=== PATIENT | female | born 1940 | race Caucasian/White ===

== ENCOUNTER 2016-10-02 17:30 | Inpatient (IN) ==
[2016-10-02] MEDS ORDERED: Melatonin 3 MG TABLET PO PRN (18:15)
--- NOTE | 2016-10-02 20:00 | Internal Med History&Physical ---
Date of Encounter: 10/03/16 Time of Encounter: 19:59 Assessment and Plan (1) Transient neurological symptoms Current visit: Yes Status: Acute Patient was transferred to our facility from [facility] with what sounds like a TIA or transient neurological change with symptoms of expressive aphasia and confusion , inability to write with her hand, and exacerbated weakness in lower extremities. Her aphasia has cleared, her handwriting problems have resolved, she is very minimal stuttering. Her basic complaint is lower extremity weakness which she states is chronic but exacerbated with this neurological episode to the point where she cannot stand or even make safe transfers. She has had a negative workup in the past. She was told by [facility] that she has not had a stroke. Her workup including carotid Dopplers, CT scan, echocardiogram are nonfocal. She states these are very characteristic regarding a aphasia, inability to write and increased weakness in lower extremities. Then it totally resolves back to baseline. Chronically she cannot walk well and is basically wheelchair bound. Not sure if this is from spinal stenosis or from statin-induced myopathy, or combination of the two. In either case she avoid statins. She will have PT, OT, recreational therapy evaluations as well as evaluation by Dr. Page and Dr. Rodrigues. Currently she appears be medically stable. She has been changed from aspirin to Plavix at [facility] I think this is a good idea and will follow. The goal is for her to return back to her home, there is a ramp and she lives on the first floor. 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 (2) History of aphasia Current visit: Yes Status: Acute Her aphasia has now clinically cleared. Please see the above note. (3) Spinal stenosis Current visit: Yes Status: Acute Chronic spinal stenosis. She has failed injections in the past. She has a nerve stimulator. She states her baseline is that she has weakness and spends most of her time in the wheelchair. After neurological event related to the aphasia the weakness is usually worse for a while until she gets therapy. The goal is for her to return back to her home which has a ramp in 1 floor usage. Qualifiers: Spinal region: lumbar Qualified Code(s): M48.06 - Spinal stenosis, lumbar region (4) Weakness of both lower extremities Current visit: Yes Status: Acute As discussed above. (5) Statin myopathy Current visit: Yes Status: Acute The weakness from spinal stenosis occurred first. Not sure if the statin exacerbated the problem or not. She no longer uses a statin. (6) Osteoarthritis Current visit: Yes Status: Acute Chronic osteoarthritis of numerous joints.. Uses Tylenol when necessary. No acute flareup. Qualifiers: Osteoarthritis location: unspecified site Qualified Code(s): M19.90 - Unspecified osteoarthritis, unspecified site (7) Hypertension Current visit: Yes Status: Acute Blood pressure is under good control. We will continue to monitor. Qualifiers: Hypertension type: essential hypertension Qualified Code(s): I10 - Essential (primary) hypertension Internal Medicine - H&P: HPI Chief complaint: I had another episode and am not able to walk Admitted From: Hospital to Hospital Transfer Plans for Post Hospital Care: Home History of present illness: Ms. Chacon is a 76 year old female who has history of chronic spinal stenosis and has had 6 episodes of expressive aphasia since 2012. She is transferred from [facility] to our facility to a swing bed for PT and OT. Her episodes started in 2012. She has one just about every year. Last was January 2015. Typically she will have expressive aphasia and confusion and inability to write and this lasts for 24-32 hours. This last time it lasted 3 days. Currently the only residual trouble with speech is occasional stuttering. Occasionally she will drool as well. After an episode she has difficulties with ambulation and typically has to go to a long term or rehabilitation facility until her strength comes back until she becomes more independent. She had a workup at [facility] including carotid dopplers/only mild stenosis, echocardiogram did not show signs of risk for embolization, CT scan showed only small vessel disease. Labs were nonfocal. She does have a history of chronic spinal stenosis for many years, failed injections and has a nerve stimulator. Typically she is in a wheelchair, she can walk a few steps using a walker. She states she is able to transfer into a car and drive. She states the weakness in the lower extremities worsened when using a statin a few years ago. She had "complete numbness" and just worsening lower extremity strength since that time. She stopped taking statins at that time. She lives in a log cabin home and has a ramp to get into the home and stays on the first floor. She is able to drive short distances. 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 A lot of the history was obtained from the granddaughter is very close to this patient and confirmed her history. Past Med Surg Social Fam HX - Past Medical History Medical history: arthritis, TIA (Transient aphasia and lower extremity weakness) , other (Spinal stenosis, failed injections, has a nerve stimulator.) - Past Surgical History Surgical History: appendectomy, hysterectomy, knee replacement - Social History Smoking Status: Never smoker Smokeless Tobacco Status: No Alcohol use: none Drug use: none - Additional Family History Additional family history: Noncontributory. No history of neuromuscular problems in the family Internal Medicine - H&P: Meds Acetaminophen [Non-Aspirin] 650 mg PO Q6HR PRN 10/02/16 [History] Clopidogrel [Plavix] 75 mg PO DAILY 10/02/16 [History] Cyanocobalamin (Vitamin B-12) [Vitamin B12] 1,000 mcg PO DAILY 10/02/16 [History ] Ergocalciferol (VITAMIN D2) [Vitamin D2] 50,000 unit PO S[place] 10/02/16 [History] Folic Acid 1 mg PO DAILY 10/02/16 [History] Levothyroxine [Synthroid] 50 mcg PO DAILY 10/02/16 [History] Melatonin 3 mg PO PRN PRN 10/02/16 [History] Thiamine (B-1) [Vitamin B-1] 200 mg PO DAILY 10/02/16 [History] amLODIPine [Norvasc] 5 mg PO DAILY 10/02/16 [History] Allergies Penicillins Allergy (Verified 10/02/16 17:59) Rash Pveefgj-Mgz-Xym Reductase Inhibitor [Statins] Allergy (Verified 10/02/16 17:59) Numbness - Constitutional Constitutional: weakness (As in history of present illness), no fever(s), no night sweats - EENT Eyes: no blurry vision, no change in vision, no diplopia, no loss of vision, no tunnel vision Ears: no decreased hearing, no ear discharge, no ear pain Nose, mouth and throat: no dry mouth, no neck mass, no neck pain, no sinus pain , no sore throat - Breasts Breasts: no mass, no pain, no nipple discharge - Cardiovascular Cardiovascular ROS IM: no chest pain, no claudication, no dyspnea, no dyspnea on exertion, no irregular heart rhythm, no lightheadedness, no orthopnea, no palpitations - Respiratory Respiratory: no cough, no dyspnea, no dyspnea on exertion, no wheezing, no stridor - Gastrointestinal Gastrointestinal: no abdominal pain, no constipation, no diarrhea, no heartburn , no nausea - Genitourinary Genitourinary: no change in urinary stream, no difficulty urinating, no urinary urgency, no vaginal discharge Menstruation: post menopausal - Musculoskeletal Musculoskeletal ROS IM: as per HPI, back pain (Has spinal stenosis and has a nerve stimulator. No exacerbation recently.), muscle weakness (As in history of present illness), no joint swelling, no myalgias, no numbness, no tingling - Integumentary Integumentary IM: no new lesions, no rash - Neurological Neurological ROS: behavioral changes (When she has her aphasia "she is out of that and confused"), focal weakness (Lower extremities as in history of present illness), no confusion, no convulsions, no loss of vision, no tremor(s), no vertigo - Psychiatric Psychiatric: no anxiety, no confusion, no depression, no mood swings, no panic attacks - Constitutional Vitals: Temp Pulse Resp BP Pulse Ox 98.1 F 87 16 148/81 97 10/02/16 17:49 10/02/16 17:49 10/02/16 17:49 10/02/16 17:49 10/02/16 17:49 General appearance: Present: A&O X 3, pleasant, no acute distress, obese, answers questions appropriately - Head Head exam: Present: atraumatic - Eye Eye exam: Present: EOMI, normal appearance, PERRL. Absent: nystagmus, scleral icterus Pupils: Present: PERRL - ENT ENT exam: Present: normal oropharynx (Upper set of dentures), TM's normal bilaterally - Neck Neck exam general surgery: Absent: lymphadenopathy, tenderness, nuchal rigidity , thyromegaly Additional comments: No JVD. No carotid bruits - Respiratory Respiratory exam: Present: decreased breath sounds, CTAB. Absent: respiratory distress - Cardiovascular Cardiovascular exam: Present: distant heart sounds, RRR, +S1, +S2. Absent: systolic murmur - GI/Abdominal GI/Abdominal exam: Present: soft, no peritoneal signs. Absent: hepatomegaly, mass, tenderness - Extremities Exam Extremities exam: Absent: calf tenderness, pedal edema, tenderness Additional comments: Good posterior tibial pulses - Neurological Exam Neurological exam: Present: CN II-XII intact, oriented X3, speech deficit ( Occasional subtle stutter). Absent: facial droop Additional comments: Lower extremity weakness and quads and hamstrings. Decreased plantar and dorsiflexion strength against resistance. I was barely able get her seated at the edge of the bed for fear she was going to slide off. She could not extend at the thighs or lower extremities against gravity. I had to lift her legs and swelling then backed into bed. Upper extremities show equal strength bilaterally and normal. No tremor. No fasciculations. - Psychiatric Psychiatric exam: Present: normal affect, normal mood - Skin Additional comments: Well-healed transverse scar in the left lower flank area from her nerve stimulator Internal Med - H&P Results - Labs CBC & Chem 7: 10/03/16 05:00 10/03/16 05:00
[2016-10-03 05:34] LABS: Basophils % 0.5 %; Eosinophils # 0.1 K/mcL (0.0-0.6); Eosinophils % 2.3 %; Hemoglobin 11.4 g/dL (11.5-15.4); Immature Granulocytes % 0.3 % (0-4); Lymphocytes # 1.3 K/mcL (0.6-4.6); Mean Corpuscular HGB Conc 32.6 g/dL (31.6-35.5); Mean Corpuscular Hemoglobin 28.4 pg (28.0-33.3); Mean Corpuscular Volume 87.3 fL (83.0-100.0); Mean Platelet Volume 10.8 fL (9.4-12.4); Monocytes # 0.6 K/mcL (0.0-1.3); Platelet Count 196 K/mcL (140-400); Red Blood Count 4.01 M/mcL (3.82-4.97); Red Cell Distribution Width 14.5 % (11.5-14.5); Segmented Neutrophils % 65.9 %
[2016-10-03 05:44] LABS: BUN/Creatinine Ratio 22 (6-26); Blood Urea Nitrogen 19 mg/dL (7-20); Calcium 9.1 mg/dL (8.6-10.8); Carbon Dioxide 24 mEq/L (19-29); Chloride 108 mEq/L (98-109); Glucose 102 mg/dL (70-99); Osmolality,Calculated 294 (280-300); Potassium 4.3 mEq/L (3.5-4.5); Sodium 141 mEq/L (136-145); eGFR For African Americans > 60 (> 60); eGFR For Non-African Americans > 60 (> 60)
[2016-10-03] MEDS: Folic Acid 1 MG TABLET PO SCH (09:01)
[2016-10-03] MEDS: amLODIPine 5 MG TABLET PO SCH (09:02)
[2016-10-03] MEDS: Cyanocobalamin (B-12) 1,000 MCG TABLET PO SCH (09:02)
[2016-10-03] MEDS: Thiamine (B-1) 100 MG TABLET PO SCH (09:02)
[2016-10-03] MEDS: Acetaminophen 325 MG TABLET PO PRN (09:08)
--- NOTE | 2016-10-03 15:24 | Internal Med Progress Note ---
Date of Encounter: 10/03/16 Time of Encounter: 15:19 - Assessment and plan (1) Transient neurological symptoms Current Visit: Yes Status: Acute Assessment and plan: The aphasia and handwriting issues have cleared. Her lower show any weakness is improving. Please the PT and OT notes. See the examination above. Vast improvement today. (2) History of aphasia Current Visit: Yes Status: Resolved Assessment and plan: The aphasia is now cleared. (3) Spinal stenosis Current Visit: Yes Status: Chronic Assessment and plan: She thinks her spinal stenosis nerve stimulator is working fine. Used Tylenol for pain today. Qualifiers: Spinal region: lumbar Qualified Code(s): M48.06 - Spinal stenosis, lumbar region (4) Weakness of both lower extremities Current Visit: Yes Status: Acute Assessment and plan: Improvement in lower extremity weakness. She is able to walk to the nurses station with walker today. Improved examination as above. Continue PT and OT. (5) Statin myopathy Current Visit: Yes Status: Chronic (6) Osteoarthritis Current Visit: Yes Status: Chronic Qualifiers: Osteoarthritis location: unspecified site Qualified Code(s): M19.90 - Unspecified osteoarthritis, unspecified site (7) Hypertension Current Visit: Yes Status: Chronic Assessment and plan: Blood pressure is controlled. Qualifiers: Hypertension type: essential hypertension Qualified Code(s): I10 - Essential (primary) hypertension - Subjective Interval history: Patient states that she is getting better. No aphasic or handwriting issues now. She was able to walk with physical therapy to the nurses station from room 114. She denies any chest pain, palpitation, irregular heartbeat, GI or symptoms. Her pain is under adequate control. She did take 2 Tylenol today. Her nerve stimulator she feels is working adequately. - Constitutional Vitals: Temp Pulse Resp BP Pulse Ox 98 F 65 16 131/82 95 10/03/16 12:00 10/03/16 12:00 10/03/16 12:00 10/03/16 12:00 10/03/16 12:00 General appearance: Present: A&O X 3, pleasant, obese, answers questions appropriately - Respiratory Respiratory exam: Present: CTAB - Cardiovascular Cardiovascular exam: Present: RRR, +S1, +S2 - Extremities Exam Extremities exam: Absent: calf tenderness, pedal edema, tenderness Additional comments: In seated position in the wheelchair she cannot raise her thighs against my hand. Against gravity she can extend at the knees approximately 45 degrees on either side. About 4 out of 5 in strength in her hamstrings and dorsi and plantar flexion of the feet - Neurological Exam Neurological exam: Present: alert, altered, CN II-XII intact, oriented X3. Absent: facial droop, speech deficit Internal Medicine: Result - Labs CBC & Chem 7: 10/03/16 05:00 10/03/16 05:00 Labs: Short CBC 10/03/16 Range/Units 05:00 WBC 6.1 (4.3-11.1) K/mcL Hgb 11.4 L (11.5-15.4) g/dL Hct 35.0 L (35.3-44.9) % Plt Count 196 (140-400) K/mcL Neutrophils # 4.0 (1.6-8.9) K/mcL BMP 10/03/16 05:00 Sodium 141 Potassium 4.3 Chloride 108 Carbon Dioxide 24 BUN 19 Creatinine 0.86 Glucose 102 H Calcium 9.1 Labs are reviewed. Unremarkable for this patient. - VTE Documentation of Mechanical Device: Graduated compression elastic hosiery Consult Discharge Plan - Plan Referrals: Bal Branch MD [Primary Care Provider] -
[2016-10-04] MEDS: Acetaminophen 325 MG TABLET PO PRN (02:48)
[2016-10-04] MEDS: Folic Acid 1 MG TABLET PO SCH (08:35)
[2016-10-04] MEDS: Thiamine (B-1) 100 MG TABLET PO SCH (08:35)
[2016-10-04] MEDS: amLODIPine 5 MG TABLET PO SCH (08:35)
[2016-10-04] MEDS: Cyanocobalamin (B-12) 1,000 MCG TABLET PO SCH (08:35)
--- NOTE | 2016-10-04 12:40 | Internal Med Progress Note ---
Date of Encounter: 10/04/16 Time of Encounter: 12:36 - Assessment and plan (1) Transient neurological symptoms Current Visit: Yes Status: Acute Assessment and plan: No recurrence of aphasia. Strength improving his lower extremities. Continue with PT, OT, RT (2) History of aphasia Current Visit: Yes Status: Resolved Assessment and plan: No recurrence of aphasia (3) Spinal stenosis Current Visit: Yes Status: Chronic Qualifiers: Spinal region: lumbar Qualified Code(s): M48.06 - Spinal stenosis, lumbar region (4) Weakness of both lower extremities Current Visit: Yes Status: Acute Assessment and plan: Improvement in lower extremity weakness. (5) Statin myopathy Current Visit: Yes Status: Chronic (6) Osteoarthritis Current Visit: Yes Status: Chronic Assessment and plan: Requested to Tylenol in the middle of the night for pain, improved Qualifiers: Osteoarthritis location: unspecified site Qualified Code(s): M19.90 - Unspecified osteoarthritis, unspecified site (7) Hypertension Current Visit: Yes Status: Chronic Assessment and plan: Adequately controlled Qualifiers: Hypertension type: essential hypertension Qualified Code(s): I10 - Essential (primary) hypertension - Subjective Interval history: She thinks she continues to improve. Denies any cardiac or respiratory symptoms. No recurrence of her aphasia. Lower extremities are getting stronger. She is sitting up waiting to get a shower this morning. - Constitutional Vitals: Temp Pulse Resp BP Pulse Ox 98.0 F 77 18 139/68 95 10/04/16 07:13 10/04/16 07:13 10/04/16 07:13 10/04/16 07:13 10/04/16 07:13 General appearance: Present: A&O X 3, pleasant, obese, answers questions appropriately - Respiratory Respiratory exam: Present: CTAB - Cardiovascular Cardiovascular exam: Present: RRR, +S1, +S2, systolic murmur (1 to 2/6 systolic murmur) - GI/Abdominal GI/Abdominal exam: Present: soft. Absent: tenderness - Extremities Exam Extremities exam: Absent: calf tenderness, pedal edema, tenderness Additional comments: She is seated in a wheelchair. She can raise her thighs off the chair, 3-4 out of 5 against resistance. She fully extend against gravity at the knees. Raising toes. Internal Medicine: Result - Labs CBC & Chem 7: 10/03/16 05:00 10/03/16 05:00 - VTE Documentation of Mechanical Device: Graduated compression elastic hosiery Consult Discharge Plan - Plan Referrals: Bal Branch MD [Primary Care Provider] -
[2016-10-05] MEDS: Acetaminophen 325 MG TABLET PO PRN ×3 (01:40→17:44)
[2016-10-05 05:32] LABS: Basophils % 0.7 %; Eosinophils # 0.1 K/mcL (0.0-0.6); Eosinophils % 2.3 %; Hematocrit 35.1 % (35.3-44.9); Hemoglobin 11.5 g/dL (11.5-15.4); Immature Granulocytes % 0.2 % (0-4); Lymphocytes # 1.5 K/mcL (0.6-4.6); Lymphocytes % 26.3 %; Mean Corpuscular HGB Conc 32.8 g/dL (31.6-35.5); Mean Corpuscular Hemoglobin 28.4 pg (28.0-33.3); Mean Corpuscular Volume 86.7 fL (83.0-100.0); Mean Platelet Volume 10.5 fL (9.4-12.4); Monocytes # 0.5 K/mcL (0.0-1.3); Monocytes % 8.5 %; Neutrophils # 3.5 K/mcL (1.6-8.9); Platelet Count 196 K/mcL (140-400); Red Blood Count 4.05 M/mcL (3.82-4.97); Red Cell Distribution Width 14.5 % (11.5-14.5)
[2016-10-05 05:43] LABS: BUN/Creatinine Ratio 20 (6-26); Blood Urea Nitrogen 16 mg/dL (7-20); Calcium 8.9 mg/dL (8.6-10.8); Carbon Dioxide 23 mEq/L (19-29); Chloride 107 mEq/L (98-109); Glucose 97 mg/dL (70-99); Osmolality,Calculated 289 (280-300); Potassium 4.4 mEq/L (3.5-4.5); Sodium 139 mEq/L (136-145); eGFR For African Americans > 60 (> 60); eGFR For Non-African Americans > 60 (> 60)
[2016-10-05] MEDS: Cyanocobalamin (B-12) 1,000 MCG TABLET PO SCH (08:26)
[2016-10-05] MEDS: Thiamine (B-1) 100 MG TABLET PO SCH (08:26)
[2016-10-05] MEDS: amLODIPine 5 MG TABLET PO SCH (08:27)
[2016-10-05] MEDS: Folic Acid 1 MG TABLET PO SCH (08:27)
--- NOTE | 2016-10-05 09:22 | Internal Med Progress Note ---
Date of Encounter: 10/05/16 Time of Encounter: 09:15 - Assessment and plan (1) Transient neurological symptoms Current Visit: Yes Status: Acute Assessment and plan: Appears to have near total resolution of her symptoms. We will see how she does with OT and PT today. Discharge planning will be done. She would like to have replacement wheelchair at home as hers is "50 years old ". (2) History of aphasia Current Visit: Yes Status: Resolved Assessment and plan: No signs of recurrence (3) Spinal stenosis Current Visit: Yes Status: Chronic Assessment and plan: She takes Tylenol when necessary for pain. No significant exacerbation of her chronic back pain. Qualifiers: Spinal region: lumbar Qualified Code(s): M48.06 - Spinal stenosis, lumbar region (4) Weakness of both lower extremities Current Visit: Yes Status: Acute (5) Statin myopathy Current Visit: Yes Status: Chronic (6) Osteoarthritis Current Visit: Yes Status: Chronic Assessment and plan: She uses Tylenol when necessary Qualifiers: Osteoarthritis location: unspecified site Qualified Code(s): M19.90 - Unspecified osteoarthritis, unspecified site (7) Hypertension Current Visit: Yes Status: Chronic Assessment and plan: Blood pressure is adequately controlled. Slightly elevated Qualifiers: Hypertension type: essential hypertension Qualified Code(s): I10 - Essential (primary) hypertension - Subjective Interval history: Patient reports no acute symptoms or problems. She thinks she is getting stronger every day: "this is what happens, I have a spell and then I get back to my usual quickly". Occupational therapy thinks she is safe to be getting dressed independently in the mornings. She has been able to get up out of her chair, walk with her walker to and from the bathroom etc. She denies any chest pain, palpitations, unilateral focal deficit, aphasia recurrence. No troubles with bowel or bladder. - Constitutional Vitals: Temp Pulse Resp BP Pulse Ox 98.2 F 76 16 145/80 94 10/05/16 07:47 10/05/16 07:47 10/05/16 07:47 10/05/16 07:47 10/05/16 07:47 General appearance: Present: A&O X 3, pleasant, obese, answers questions appropriately - Respiratory Respiratory exam: Present: CTAB - Cardiovascular Cardiovascular exam: Present: RRR, +S1, +S2, systolic murmur (1 to 2/6 systolic murmur) - Extremities Exam Extremities exam: Absent: pedal edema - Neurological Exam Neurological exam: Present: alert, CN II-XII intact, oriented X3 Additional comments: Patient was able to stand from a seated position, use her walker to ambulate a few feet, turn and then returned to the chair without difficulty. I did not do individual muscle testing today Internal Medicine: Result - Labs CBC & Chem 7: 10/05/16 05:20 10/05/16 05:20 Labs: Short CBC 10/05/16 Range/Units 05:20 WBC 5.7 (4.3-11.1) K/mcL Hgb 11.5 (11.5-15.4) g/dL Hct 35.1 L (35.3-44.9) % Plt Count 196 (140-400) K/mcL Neutrophils # 3.5 (1.6-8.9) K/mcL BMP 10/05/16 05:20 Sodium 139 Potassium 4.4 Chloride 107 Carbon Dioxide 23 BUN 16 Creatinine 0.80 Glucose 97 Calcium 8.9 Labs have been reviewed and doing well - VTE Documentation of Mechanical Device: Graduated compression elastic hosiery Consult Discharge Plan - Plan Referrals: Bal Branch MD [Primary Care Provider] -
[2016-10-06 07:10] VITALS: BP 131/74
[2016-10-06] MEDS: Thiamine (B-1) 100 MG TABLET PO SCH (08:49)
[2016-10-06] MEDS: Cyanocobalamin (B-12) 1,000 MCG TABLET PO SCH (08:49)
[2016-10-06] MEDS: Folic Acid 1 MG TABLET PO SCH (08:49)
[2016-10-06] MEDS: amLODIPine 5 MG TABLET PO SCH (08:50)
[2016-10-06] MEDS: Acetaminophen 325 MG TABLET PO PRN (08:53)
--- NOTE | 2016-10-06 15:07 | Discharge Summary ---
Date of Encounter: 10/06/16 Time of Encounter: 15:02 - Discharge Diagnosis (1) Transient neurological symptoms Priority: Primary Status: Acute Comments: Patient was transferred to [facility] from [facility] with what sounds like a TIA or transient neurological changes with symptoms of expressive aphasia and confusion, inability to write with her hand, exacerbated weakness or lower extremities. By the time she arrived at our unit the aphasia was basically completely cleared. Her handwriting problem had resolved. The biggest problem was her lower extremity weakness. She underwent PT, OT, RT evaluations and therapies. She improved back to her baseline. She has been ambulatory with her walker for at least 120 feet or more at a time. She states this is about her chronic baseline. She does not have any further neurological deficit appearing, no cardiac or pulmonary problems, and feels that she is ready for home. She has a ramp to get into her home and she has assistance in the house. She will be discharged today with home health and home PT to be arranged. She will follow-up with Dr. Branch. Her only new medication is Plavix, and we discontinued the aspirin. (2) History of aphasia Priority: Secondary Status: Resolved Comments: As above. She was evaluated by speech and psychologist and no intervention needed. (3) Spinal stenosis Priority: Secondary Status: Chronic Comments: Chronic history of spinal stenosis and lower extremity weakness. She used occasional acetaminophen for pain. She feels that she is back to her baseline. 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 She refuses to try a statin again. (6) Osteoarthritis Priority: Secondary Status: Chronic Comments: She used a few doses of Tylenol for arthritic pain. Qualifiers: Osteoarthritis location: unspecified site Qualified Code(s): M19.90 - Unspecified osteoarthritis, unspecified site (7) Hypertension Priority: Secondary Status: Chronic Comments: Her blood pressure remained under good control. No change in medications were made Qualifiers: Hypertension type: essential hypertension Qualified Code(s): I10 - Essential (primary) hypertension - Discharge Medications Prescriptions: Clopidogrel [Plavix] 75 mg PO DAILY #30 tab Home Medications: Acetaminophen [Non-Aspirin] 650 mg PO Q6HR PRN 10/02/16 [History] Cyanocobalamin (Vitamin B-12) [Vitamin B12] 1,000 mcg PO DAILY 10/02/16 [History ] Ergocalciferol (VITAMIN D2) [Vitamin D2] 50,000 unit PO SALEEM 10/02/16 [History] Folic Acid 1 mg PO DAILY 10/02/16 [History] Levothyroxine [Synthroid] 50 mcg PO DAILY 10/02/16 [History] Melatonin 3 mg PO PRN PRN 10/02/16 [History] Thiamine (B-1) [Vitamin B-1] 200 mg PO DAILY 10/02/16 [History] amLODIPine [Norvasc] 5 mg PO DAILY 10/02/16 [History] Clopidogrel [Plavix] 75 mg PO DAILY #30 tab 10/06/16 [Rx] Allergies/Adverse Reactions: Allergies Penicillins Allergy (Verified 10/02/16 17:59) Rash Apsgtme-Pfe-Qlg Reductase Inhibitor [Statins] Allergy (Verified 10/02/16 17:59) Numbness Procedures/tests Complete & Pending: Laboratory Results - last 48 hr 10/05/16 10/05/16 05:20 05:20 WBC 5.7 RBC 4.05 Hgb 11.5 Hct 35.1 L MCV 86.7 MCH 28.4 MCHC 32.8 RDW 14.5 Plt Count 196 MPV 10.5 Immature Gran % 0.2 Seg Neutrophils % 62.0 Lymphocytes % 26.3 Monocytes % 8.5 Eosinophils % 2.3 Basophils % 0.7 Neutrophils # 3.5 Lymphocytes # 1.5 Monocytes # 0.5 Eosinophils # 0.1 Basophils # 0.0 Sodium 139 Potassium 4.4 Chloride 107 Carbon Dioxide 23 BUN 16 Creatinine 0.80 Est GFR ( Amer) > 60 Est GFR (Non-Af Amer) > 60 BUN/Creatinine Ratio 20 Glucose 97 Calculated Osmolality 289 Calcium 8.9 Date of admission: 10/02/16 17:30 Primary care physician: Bal Branch, Consults: 10/02/16 18:00 Consult to Occupational Therapy [CONS] Routine Comment: TIA Reason for Consult: TIA Consult to Physical Therapy [CONS] Routine Comment: TIA Reason for Consult: TIA Consult to Recreational Therapy [CONS] Routine Comment: Consult to Software Integrator [CONS] Routine Reason for SW Consult: Rehab 10/02/16 18:03 Consult to Speech Therapy [CONS] Routine Comment: Evaluate, develop and implement POC Reason for Consult: Patient non verbal till this morning Call Completed: No 10/05/16 16:04 Consult to Psychology [CONS] Routine Consulting Provider: Josie Rodrigues Reason for Consult: multiple TIA's Call Completed: No Discharging clinician: Josué Gonzales Anticipated date of discharge: 10/06/16 - Patient Status Disposition: Home Health Service Condition: Good Functional capacity at discharge: uses cane/walker Overall status at discharge: patient is progressing back to baseline - Discharge Instructions Instructions: Transient Ischemic Attack, Testing Specialist (GEN) Follow Up With: Bal Branch MD [Primary Care Provider] - 10/13/16 3:00 pm (follow up appointment) Additional Instructions: Follow-up appointments: If there is not an appointment listed below, please call your physician and schedule a follow-up appointment. If you have congestive heart failure and your symptoms return, make an appointment with your physician. Medication List: Carry an up to date list of medications you are taking at all time. We have given you an updated medication list including any new medications that you have been prescribed. Please provide that list to your primary provider Symptoms: If your condition changes or you experience any of the following symptoms, notify your physician immediately: Unusual or worsening pain, fever, persistent nausea and vomiting, bleeding, increase in swelling (especially in your legs), sudden weight gain, extreme dizziness, chest pain, increased drainage or redness from a wound or incision. Go to the emergency department if you experience a problem with breathing. Weights: If you have a history of swelling or shortness of breath, weigh yourself daily and notify your physician if you have a weight gain of two or more pounds in one day or 5 or more pounds in a week. If you experience any of the warning signs for stroke: Sudden numbness or weakness of the face, arm or leg; especially on one side of the body, sudden confusion, trouble speaking or understanding, sudden trouble seeing in one or both eyes, sudden trouble walking, dizziness, loss of balance or coordination, sudden sever headache with no cause; Call 911 or go to the emergency room. Stroke is a medical emergency. Some risk factors for stroke: Age, cigarette smoking, diabetes, excessive alcohol consumption, family history , high blood pressure, overweight, physical inactivity, prior stroke, heart attack, diagnosis of carotid artery stenosis or other artery disease. If you smoke, STOP: Smoking or tobacco use significantly increases your risk of heart and lung disease. Your chance of disease greatly increases if you continue to smoke. For more information, call the [place] tobacco quit line for smoking cessation -NOW ( ) Interval History: Overnight she slept well. She is doing well with therapy. She denies any cardiac or respiratory symptoms acutely. Her vitals are stable. Her blood work is stable. She is ready for discharge today. Hospital course: Ms. Chacon is a 76 year old female with history of chronic spinal stenosis and has had 6 episodes of expressive aphasia since 2012. In addition to the expressive aphasia is she develops inability to write with her right hand and has exacerbation of her lower extremity weakness. She was transferred to our unit from [facility] to our facility to a swing bed for PT and OT because of her lower extremity weakness. Please see the history and physical for admission details. She did very well with PT, OT and she did not require speech therapy. She advanced back to her baseline which includes the use of a walker. Therapies feel that she is safe to return home. Home health and home physical therapy will be arranged. She will follow-up with Dr. Branch. The only significant medication change was stopping the aspirin starting Plavix in [facility]. - Time Spent with Patient Total time spent providing and/or coordinating discharge services: - Constitutional Vitals: Temp Pulse Resp BP Pulse Ox 98.2 F 80 16 131/74 95 10/06/16 07:09 10/06/16 07:09 10/06/16 07:09 10/06/16 07:09 10/06/16 07:09 General appearance: Present: A&O X 3, pleasant, obese, answers questions appropriately - Respiratory Respiratory exam: Present: CTAB - Cardiovascular Cardiovascular exam: Present: RRR, +S1, +S2, systolic murmur (1 to 2/6 systolic murmur) - Extremities Exam Extremities exam: Absent: calf tenderness, pedal edema, tenderness Additional comments: Upper extremities show normal strength and range of motion actively and passively. Lower extremities show 4 out of 5 in strength as tested in seated position of her quads and hamstrings. She is able to stand, by ambulatory with her walker and able to walk 120 feet or more safely. - Neurological Exam Neurological exam: Present: alert, CN II-XII intact, oriented X3 Additional comments: see examination of extremities above. - Stroke Contraindication Rehab Services Not Assessed: Returned to Prior Level of Function - VTE Documentation of Mechanical Device: Graduated compression elastic hosiery
--- NOTE | 2016-10-06 15:33 | Physician Discharge Referral ---
Home Health/Hosp Referral Info Provider in Charge Post Discharge: PCP (Dr. Bal Branch) - Diagnosis (1) Transient neurological symptoms Status: Acute (2) History of aphasia Status: Resolved (3) Spinal stenosis Status: Chronic (4) Weakness of both lower extremities Status: Chronic (5) Statin myopathy Status: Chronic (6) Osteoarthritis Status: Chronic (7) Hypertension Status: Chronic - Respiratory Orders Smoking Cessation: Smoking cessation has been advised. For more information, call the [place] Tobacco Quit Line at 9-965-YIBZ-NOW. - Diet/Nutrition Diet/Nutrition Orders: No Added Salt (CHELSEY) - Activity Activity Orders: Walker - Services Needed Following services are medically necessary services: Nursing, Physical Therapy - Transfer Medications Prescriptions: Clopidogrel [Plavix] 75 mg PO DAILY #30 tab Home Medications: Acetaminophen [Non-Aspirin] 650 mg PO Q6HR PRN 10/02/16 [History] Cyanocobalamin (Vitamin B-12) [Vitamin B12] 1,000 mcg PO DAILY 10/02/16 [History ] Ergocalciferol (VITAMIN D2) [Vitamin D2] 50,000 unit PO SALEEM 10/02/16 [History] Folic Acid 1 mg PO DAILY 10/02/16 [History] Levothyroxine [Synthroid] 50 mcg PO DAILY 10/02/16 [History] Melatonin 3 mg PO PRN PRN 10/02/16 [History] Thiamine (B-1) [Vitamin B-1] 200 mg PO DAILY 10/02/16 [History] amLODIPine [Norvasc] 5 mg PO DAILY 10/02/16 [History] Clopidogrel [Plavix] 75 mg PO DAILY #30 tab 10/06/16 [Rx] Allergies/Adverse Reactions: Allergies Penicillins Allergy (Verified 10/02/16 17:59) Rash Cxuemad-Qnw-Fmc Reductase Inhibitor [Statins] Allergy (Verified 10/02/16 17:59) Numbness Certification: Further, I certify that my clinical findings support that this patient is homebound (i.e. absences from home require considerable and taxing effort and are for medical reasons or hindu services or infrequently or short duration when for other reasons) because: Homebound Reason: Patient requires assistance of a person or device to safely leave home, Leaving home requires considerable and taxing effort due to condition Attestation: My signature below is to certify that this patient is under my care and that I, or nurse practitioner, or a physician's loan officer assistant working with me, has a face-to -face encounter with this patient.
== END 2016-10-06 15:30 | disposition home health service (06) | DRG 945 ==
LOC: MERGE 17:30 → INPGRE 17:30
PROVIDERS: ADMIT Family Medicine; ATTEND Family Medicine